=== PATIENT | female | born 1990 | race African-American/Black ===

== ENCOUNTER → 2024-09-23 | Emergency (ER) | payer SELFPAY ==
[~2024-09-23] VITALS: Ht 165.1 cm; Wt 65.8 kg
[2024-09-23 14:38] VITALS: BP 130/78; TEMP 98.1; O2SAT 97
== END | disposition left against medical advice (07) ==
LOC: ER 14:37
DX: R03.0 Elevated blood-pressure reading, without diagnosis of hypertension (principal); Z53.21 Procedure and treatment not carried out due to patient leaving prior to being seen by health care provider